=== PATIENT | male | born 1960 | race Caucasian/White ===

== ENCOUNTER 2022-09-08 17:53 | Emergency (ER) | payer BC ==
[2022-09-08 18:07] LABS: BASOPHILS % (AUTO) 0 % (0-10); EOSINOPHILS # (AUTO) 0.1 10^3/uL (0.0-0.3); EOSINOPHILS % (AUTO) 1 % (0-10); HEMATOCRIT 44 % (40-54); HEMOGLOBIN 14.9 g/dL (13.3-17.7); LYMPHOCYTES # (AUTO) 2.5 10^3/uL (1.0-4.0); LYMPHOCYTES % (AUTO) 18 % (12-44); MEAN CORPUSCULAR HEMOGLOBIN 32 pg (25-34); MEAN CORPUSCULAR HGB CONC 34 g/dL (32-36); MEAN CORPUSCULAR VOLUME 94 fL (80-99); MEAN PLATELET VOLUME 9.4 fL (9.0-12.2); MONOCYTES # (AUTO) 1.6 10^3/uL (0.0-1.0); MONOCYTES % (AUTO) 12 % (0-12); NEUTROPHILS # (AUTO) 9.7 10^3/uL (1.8-7.8); NEUTROPHILS % (AUTO) 69 % (42-75); PLATELET COUNT 303 10^3/uL (130-400)
[2022-09-08] MEDS ORDERED: KETOROLAC 30 MG/ML VIAL IVP ONE (18:15)
[2022-09-08 18:27] LABS: BILIRUBIN,TOTAL 0.5 MG/DL (0.1-1.0); CALCIUM 9.6 MG/DL (8.5-10.1); CREATININE SERUM 1.32 MG/DL (0.60-1.30); POTASSIUM 4.1 MMOL/L (3.6-5.0)
[2022-09-08 18:28] LABS: ALBUMIN 4.3 GM/DL (3.2-4.5); TOTAL PROTEIN 7.7 GM/DL (6.4-8.2)
--- NOTE | 2022-09-08 18:41 | Diagnostic Imaging Report ---
PROCEDURE: CT abdomen and pelvis without contrast. TECHNIQUE: Multiple contiguous axial images were obtained through the abdomen and pelvis without the use of intravenous contrast. Auto Exposure Controls were utilized during the CT exam to meet ALARA standards for radiation dose reduction. INDICATION: Groin pain, hematuria. COMPARISON: None available. FINDINGS: Calcified granuloma within the left lung base. 1.5 cm subcutaneous nodule identified within the inferior left breast, partially visualized. Calcified hepatic and splenic granuloma are present. The unenhanced liver and spleen are otherwise unremarkable. The adrenal glands are unremarkable. The pancreas is unremarkable. The gallbladder is unremarkable. Mild left perinephric fat stranding is present. Otherwise, the left kidney and ureter are unremarkable without evidence of left-sided hydronephrosis. 1 mm calculus is identified within the right ureterovesicular junction. This is resulting in mild to moderate right-sided hydroureteronephrosis with associated right perinephric fat stranding. Mild vascular calcifications without aneurysmal dilatation of the abdominal aorta. The urinary bladder is unremarkable. Small fat-containing bilateral inguinal hernias. The prostate gland is mildly enlarged. Colonic diverticulosis without CT evidence of diverticulitis. The appendix is unremarkable. No bowel obstruction or pneumatosis. Retroaortic left renal vein. No significant adenopathy, free air or free fluid. Partially visualized at least 5 cm lucency is noted within the proximal right femoral shaft. This demonstrates predominantly thin sclerotic margins without associated periosteal reaction. Mild scattered osseous degenerative changes. No acute fracture. IMPRESSION: 1 to 2 mm calculus within the right ureterovesicular junction resulting in mild to moderate right-sided hydroureteronephrosis. Given associated inflammatory stranding, superimposed infection may be present. Bilateral perinephric fat stranding, potentially related to chronic renal insufficiency versus infection. At least 5 cm lucency within the proximal right femur is partially visualized. This demonstrates predominantly nonaggressive features, though is technically indeterminate based upon this examination. Multiple myeloma is not excluded. Recommend clinical correlation. Additionally, nonemergent radiographs of the right femur could help to further evaluate and to completely visualize this lesion. Evidence of chronic granulomatous disease. Additional findings as above. Dictated by: Dictated on workstation # [id number]
[2022-09-08 18:59] LABS: BILIRUBIN,URINE NEGATIVE (NEGATIVE); CLARITY,URINE CLEAR; GLUCOSE, URINE (UA) NEGATIVE (NEGATIVE); KETONES,URINE NEGATIVE (NEGATIVE); LEUKOCYTE ESTERASE ,URINE NEGATIVE (NEGATIVE); NITRITE,URINE NEGATIVE (NEGATIVE); PH,URINE 5.5 (5-9); PROTEIN,URINE 1+ (NEGATIVE)
[2022-09-08 19:04] LABS: BACTERIA,URINE MODERATE /HPF; COLOR,URINE DARK YELLOW; RBC,URINE 50-100 /HPF
[2022-09-08 19:05] LABS: LYMPHOCYTES % (MANUAL) 11 %; MONOCYTES % (MANUAL) 10 %; NEUTROPHILS % (MANUAL) 79 %
[2022-09-08] MEDS ORDERED: cefTRIAXone 1 GM PRE-MIX 50 ML IV ONE (19:15)
[2022-09-08] MEDS ORDERED: NS IV 1000 ML 1,000 ML IV SCH (19:15)
--- NOTE | 2022-09-08 19:23 | ED Abdominal Pain ---
General Chief Complaint: Abdominal/GI Problems Stated Complaint: R SIDE ABD PAIN Nursing Triage Note: Patient presents to the ED with c/o right sided abdominal/groin pain. Was seen at urgent care and sent to the ED for further evaluation for possible kidney stone. Patient reports intermittent sharp shooting pain on the right side since yesterday. Denies fever. Source of Information: Patient Exam Limitations: No Limitations History of Present Illness Date Seen by Provider: Sep 08, 2022 Time Seen by Provider: 18:00 Initial Comments Patient is a 61-year-old male presents with right intermittent right lower quadrant pain rating to the right groin/testicle for the past week. Pain is mild to moderate. Seen at [facility] told he was had blood in his urine. No history of kidney stone. No nausea or vomiting. No fever chills or sweats. Patient has had mucousy stools. No history of diverticulitis or appendicitis. No medications or therapies prior to ED arrival. Timing/Duration: 6-7 Days Severity/Quality: Other Location: Other Radiation: Other Activities at Onset: Other Modifying Factors: Improves With Other Associated Symptoms: Other Allergies and Home Medications Allergies Coded Allergies: aspirin (Verified Allergy, Unknown, 09/08/22) Patient Home Medication List Home Medication List Reviewed: Yes Review of Systems Review of Systems Constitutional: see HPI EENTM: See HPI Respiratory: See HPI Cardiovascular: See HPI Gastrointestinal: See HPI Genitourinary: See HPI Musculoskeletal: see HPI Skin: see HPI Psychiatric/Neurological: See HPI Endocrine: See HPI Hematologic/Lymphatic: See HPI All Other Systems Reviewed Negative Unless Noted: No Past Dwfykwm-Mgzvux-Tmyxvj Hx Patient Social History Tobacco Use?: Yes Tobacco type used: Cigars Smoking Status: Current Someday Smoker Use of E-Cig and/or Vaping dev: No Substance use?: No Alcohol Use?: Yes Alcohol Frequency: Rarely Pt feels they are or have been: No Immunizations Up To Date Influenza Vaccine Up-to-Date: No; Not Current First/Initial COVID19 Vaccinat: Denies Past Medical History Surgery/Hospitalization HX: GERD Physical Exam Vital Signs Vital Signs - First Documented 09/08/22 17:58 Temp 37.2 Pulse 72 Resp 16 B/P (MAP) 146/79 (101) Pulse Ox 99 O2 Delivery Room Air Capillary Refill : Less Than 3 Seconds Height/Weight/BMI Height: '" Weight: lbs. oz. kg; BMI Method: General Appearance: WD/WN HEENT: PERRL/EOMI Respiratory: lungs clear, normal breath sounds Cardiovascular: regular rate, rhythm Gastrointestinal: soft, tenderness (Right lower quadrant no tenderness or pain) Back: normal inspection, no CVA tenderness Focused Exam Sepsis Stage: Ruled Out Progress/Results/Core Measures Results/Orders Lab Results Laboratory Tests Test 09/08/22 18:05 09/08/22 18:53 Range/Units White Blood Count 14.0 H 4.3-11.0 10^3/uL Red Blood Count 4.64 4.30-5.52 10^6/uL Hemoglobin 14.9 13.3-17.7 g/dL Hematocrit 44 40-54 % Mean Corpuscular Volume 94 80-99 fL Mean Corpuscular Hemoglobin 32 25-34 pg Mean Corpuscular Hemoglobin Concent 34 32-36 g/dL Red Cell Distribution Width 12.4 10.0-14.5 % Platelet Count 303 130-400 10^3/uL Mean Platelet Volume 9.4 9.0-12.2 fL Immature Granulocyte % (Auto) 0 % Neutrophils (%) (Auto) 69 42-75 % Lymphocytes (%) (Auto) 18 12-44 % Monocytes (%) (Auto) 12 0-12 % Eosinophils (%) (Auto) 1 0-10 % Basophils (%) (Auto) 0 0-10 % Neutrophils # (Auto) 9.7 H 1.8-7.8 10^3/uL Lymphocytes # (Auto) 2.5 1.0-4.0 10^3/uL Monocytes # (Auto) 1.6 H 0.0-1.0 10^3/uL Eosinophils # (Auto) 0.1 0.0-0.3 10^3/uL Basophils # (Auto) 0.0 0.0-0.1 10^3/uL Immature Granulocyte # (Auto) 0.0 0.0-0.1 10^3/uL Neutrophils % (Manual) 79 % Lymphocytes % (Manual) 11 % Monocytes % (Manual) 10 % Sodium Level 143 135-145 MMOL/L Potassium Level 4.1 3.6-5.0 MMOL/L Chloride Level 108 H 98-107 MMOL/L Carbon Dioxide Level 25 21-32 MMOL/L Anion Gap 10 5-14 MMOL/L Blood Urea Nitrogen 22 H 7-18 MG/DL Creatinine 1.32 H 0.60-1.30 MG/DL Estimat Glomerular Filtration Rate 61 BUN/Creatinine Ratio 17 Glucose Level 99 70-105 MG/DL Calcium Level 9.6 8.5-10.1 MG/DL Corrected Calcium 9.4 8.5-10.1 MG/DL Total Bilirubin 0.5 0.1-1.0 MG/DL Aspartate Amino Transf (AST/SGOT) 17 5-34 U/L Alanine Aminotransferase (ALT/SGPT) 14 0-55 U/L Alkaline Phosphatase 96 40-136 U/L Total Protein 7.7 6.4-8.2 GM/DL Albumin 4.3 3.2-4.5 GM/DL Urine Color DARK YELLOW Urine Clarity CLEAR Urine pH 5.5 5-9 Urine Specific [place] >=1.030 1.016-1.022 Urine Protein 1+ H NEGATIVE Urine Glucose (UA) NEGATIVE NEGATIVE Urine Ketones NEGATIVE NEGATIVE Urine Nitrite NEGATIVE NEGATIVE Urine Bilirubin NEGATIVE NEGATIVE Urine Urobilinogen 0.2 < = 1.0 MG/DL Urine Leukocyte Esterase NEGATIVE NEGATIVE Urine RBC (Auto) 3+ H NEGATIVE Urine RBC 50-100 H /HPF Urine WBC 10-25 H /HPF Urine Squamous Epithelial Cells 5-10 /HPF Urine Crystals NONE /LPF Urine Bacteria MODERATE H /HPF Urine Casts PRESENT /LPF Urine Hyaline Casts 5-10 H /LPF Urine Mucus LARGE H /LPF Urine Culture Indicated YES My Orders Orders - SAVANA GREEN DO Ct Abdomen/Pelvis Wo (09/08/22 18:01) Cbc With Automated Diff (09/08/22 18:01) Comprehensive Metabolic Panel (09/08/22 18:01) Ua Culture If Indicated (09/08/22 18:01) Manual Differential (09/08/22 18:05) Ketorolac Injection (Toradol Injection) (09/08/22 18:15) Femur 2 View Right (09/08/22 18:52) Urine Culture (09/08/22 18:53) Rocephin 1gm/50 Ml Iv (1xdose) (09/08/22 19:15) Normal Saline Bolus 1,000ml (09/08/22 19:15) Medications Given in ED Current Medications Medications Dose Ordered Sig/Perry Route Start Time Stop Time Status Last Admin Dose Admin Ketorolac Tromethamine 30 mg ONCE ONCE IVP 09/08/22 18:15 09/08/22 18:16 DC 09/08/22 18:27 30 MG Vital Signs/I&O 09/08/22 17:58 Temp 37.2 Pulse 72 Resp 16 B/P (MAP) 146/79 (101) Pulse Ox 99 O2 Delivery Room Air Blood Pressure Mean: 101 Departure Communication (Admissions) CT abdomen pelvis without contrast: 2 mm right UVJ stone with moderate ureteral distention and hydronephrosis with perinephric stranding. Obstructive uropathy with urinary tract infection and incidental finding of right hip lucency. IV fluids, antibiotics given pain controlled. Right femur x-ray will be obtained to evaluate for possible malignancy. Dissipate discharge home with supportive care with PCP follow-up. Return precautions reviewed. Patient verbalizes understanding agreement with discharge instructions prior to departure. Impression Primary Impression: Obstructive uropathy Additional Impressions: Kidney stone Urinary tract infection Abnormal x-ray of femur Disposition: HOME, SELF-CARE Condition: Stable Departure-Patient Inst. Decision time for Depature: 19:24 Referrals: NO,LOCAL PHYSICIAN (PCP/Family) Primary Care Physician Patient Instructions: Kidney Infection (DC), Kidney Stone, Adult ED Add. Discharge Instructions: You were evaluated in the emergency department for right groin pain. Lab and imaging studies were performed and reveal a urinary tract infection and a small kidney stone just above the level of the bladder. Please increase fluids take newly prescribed medications as directed and follow-up with your PCP for reevaluation and review of abnormal hip x-ray. In the meantime if you develop new or worsening symptoms, return to the emergency department. All discharge instructions reviewed with patient and/or family. Voiced understanding. Scripts Ondansetron (Ondansetron Odt) 4 Mg Tab.rapdis 4 MG SL Q4H PRN for NAUSEA/VOMITING, #10 TAB Prov: SAVANA GREEN DO 09/08/22 Hydrocodone/Acetaminophen (Hydrocodone-Acetamin 5-325 mg) 5 Mg-325 Mg Tablet 1 TAB PO Q4H PRN for PAIN-MODERATE (5-7), #10 TAB Prov: SAVNAA GREEN DO 09/08/22 Cephalexin (Cephalexin) 500 Mg Tablet 500 MG PO TID for 15 Days, TAB Prov: SAVANA GREEN DO 09/08/22 SAVANA GREEN DO Sep 08, 2022 19:23
[2022-09-08] MEDS ORDERED: CEPH500T PO (19:27)
[2022-09-08] MEDS ORDERED: ACHD5005 PO (19:27)
[2022-09-08] MEDS ORDERED: ONDA4TAB11 SL (19:27)
[2022-09-08 19:36] VITALS: BP 134/82
--- NOTE | 2022-09-08 20:27 | Diagnostic Imaging Report ---
INDICATION: Abnormal CT COMPARISON: CT from same date TECHNIQUE: 4 radiographs of the right femur dated 09/08/2022. FINDINGS: Ill-defined ovoid lucency is noted within the proximal right femur within the subtrochanteric region measuring near 6.2 cm. No associated periosteal reaction. No endosteal scalloping. The visualized margins appear thin and sclerotic superiorly, though are predominantly indistinct inferiorly. No additional lucent lesions identified. No acute fracture. No dislocation. The right femoral head maintains its normal shape and contour. No suspicious radiopaque foreign body. IMPRESSION: Indeterminate near 6 cm lucent lesion within the right subtrochanteric region. Though this does not demonstrate aggressive features at this time, given patient's age, multiple myeloma or lytic osseous metastatic disease should be considered. Recommend clinical correlation. Comparison to remote imaging would also be beneficial. No acute fracture. Dictated by: Dictated on workstation # [id number]
== END 2022-09-08 20:02 | disposition home or self-care (01) ==
LOC: ER FS 17:55
DX: N13.2 Hydronephrosis with renal and ureteral calculous obstruction (principal); N13.9 Obstructive and reflux uropathy, unspecified; N39.0 Urinary tract infection, site not specified; R93.7 Abnormal findings on diagnostic imaging of other parts of musculoskeletal system; F17.290 Nicotine dependence, other tobacco product, uncomplicated; Z28.310 Unvaccinated for COVID-19
CPT/HCPCS: 36415; 73552; 74176; 80053; 81000; 85007; 85027; 87088; 96374; 96375